=== PATIENT | female | born 1950 | race Native Hawaiian/Other Pacific Islander ===

== ENCOUNTER 2017-03-03 10:59 | Outpatient (CLI) | payer OTHER ==
[~2017-03-03 10:59] MED LIST: AMIT25TA22 PO; MOBIC7.5 M1 PO; ZANTAC 75 PO
== END 2017-03-03 12:00 | disposition home or self-care (01) ==
LOC: RAD 10:59
DX: M54.31 Sciatica, right side (principal); M25.551 Pain in right hip

== ENCOUNTER 2018-06-18 08:49 | Outpatient (CLI) | payer OTHER | END 2018-06-18 19:46 | disposition home or self-care (01) | LOC: MAMMO 08:49 | DX: Z12.31 Encounter for screening mammogram for malignant neoplasm of breast (principal) ==

== ENCOUNTER 2019-03-16 07:50 | Outpatient (CLI) | payer OTHER | END 2019-03-16 23:43 | disposition home or self-care (01) | LOC: MRI 07:50 | DX: N85.8 Other specified noninflammatory disorders of uterus (principal) | CPT/HCPCS: 36415; 82565; 84520; A9576 ==

== ENCOUNTER 2019-10-25 09:04 | Outpatient (CLI) | payer OTHER | END 2019-10-25 19:36 | disposition home or self-care (01) | LOC: US 09:04 | DX: K85.80 Other acute pancreatitis without necrosis or infection (principal); N63.25 Unspecified lump in the left breast, overlapping quadrants ==

== ENCOUNTER 2019-12-06 15:43 | Outpatient (CLI) | payer OTHER ==
[2019-12-06 16:19] LABS: PLATELET COUNT 277 K/uL (152-353)
[2019-12-06 16:22] LABS: POTASSIUM 3.4 mmol/L (3.6-5.2)
== END 2019-12-06 19:27 | disposition home or self-care (01) ==
LOC: CT 15:43 → LABW 15:43
PROVIDERS: Nurse Practitioner Family
DX: R10.12 Left upper quadrant pain (principal); R10.32 Left lower quadrant pain; K57.30 Diverticulosis of large intestine without perforation or abscess without bleeding
CPT/HCPCS: 36415; 80053; 82150; 83690; 85027; Q9963

== ENCOUNTER 2019-12-26 09:32 | Outpatient (CLI) | payer OTHER | END 2019-12-26 19:40 | disposition home or self-care (01) | LOC: CT 09:32 | DX: F17.210 Nicotine dependence, cigarettes, uncomplicated (principal) | CPT/HCPCS: G0297-TC ==

== ENCOUNTER 2020-01-11 08:49 | Outpatient (CLI) | payer OTHER | END 2020-01-11 21:49 | disposition home or self-care (01) | LOC: NM 08:49 | DX: R10.11 Right upper quadrant pain (principal) | CPT/HCPCS: A9537 ==

== ENCOUNTER 2020-03-12 15:36 | Outpatient (CLI) | payer OTHER ==
[2020-03-12 16:05] LABS: POTASSIUM 3.3 mmol/L (3.6-5.2)
== END 2020-03-12 22:31 | disposition home or self-care (01) ==
LOC: RAD 15:36
PROVIDERS: Nurse Practitioner Family
DX: R10.84 Generalized abdominal pain (principal)
CPT/HCPCS: 36415; 80053; 82150; 83690